=== PATIENT | male | born 1995 | race Caucasian/White ===

== ENCOUNTER 2017-02-24 07:31 | Emergency (ER) | payer OTHER ==
[2017-02-24] MEDS ORDERED: ONDANSETRON HCL INJ/PF 4 MG/2 ML SDV IM ONE (08:23)
[2017-02-24] MEDS ORDERED: HYDROMORPHONE HCL INJ/PF 2 MG/ML AMPULE IM ONE (08:24)
--- NOTE | 2017-02-24 08:27 | ER Document Report ---
ED Oral Problem - General Chief Complaint: Jaw Pain Stated Complaint: JAW PAIN Mode of Arrival: Ambulatory Information source: Patient TRAVEL OUTSIDE OF THE [place] IN LAST 30 DAYS: No - HPI Patient complains to provider of: Jaw pain Onset: Just prior to arrival Quality of pain: Achy Severity: Moderate Associated symptoms: Drooling, Jaw pain. denies: Chills, Cough, Earache, Fever , Short of breath, Sweaty, Toothache, Tongue swelling, Unable to swallow, White patches in mouth Notes: The patient arrives with complaints of bilateral jaw pain. The patient states that he yawned this morning and his jaw opened and he is now unable to close it. He denies any trauma. He denies any fever. He is difficulty moving his jaw. He complains of pain. He denies any difficulty breathing or swallowing. No chest pain or shortness of breath. No blood thinners. He denies any nausea , vomiting, diarrhea. He denies any other complaints at this time. - Related Data Allergies/Adverse Reactions: No Known Allergies Allergy (Verified 02/24/17 07:47) Past Medical History - Social History Smoking Status: Current Every Day Smoker Family History: Reviewed & Not Pertinent Patient has suicidal ideation: No Patient has homicidal ideation: No Renal/ Medical History: Denies: Hx Peritoneal Dialysis Review of Systems - Review of Systems -: Yes All other systems reviewed and negative Physical Exam - Vital signs Vitals: Temp Pulse Resp BP Pulse Ox 98.2 F 73 16 138/77 H 100 02/24/17 07:46 02/24/17 07:46 02/24/17 07:46 02/24/17 07:46 02/24/17 07:46 Interpretation: Normal - General General appearance: Appears well, Alert - HEENT Head: Normocephalic, Atraumatic Eyes: Normal Ears: Normal External canal: Normal Mucous membranes: Normal Pharynx: Normal Neck: Normal Notes: Patient noted an open jaw with obvious TMJ dislocation. There is no redness, no swelling. - Respiratory Respiratory status: No respiratory distress Breath sounds: Normal - Cardiovascular Rhythm: Regular Heart sounds: Normal auscultation Murmur: No - Extremities General upper extremity: Normal inspection, Nontender, Normal color, Normal ROM , Normal temperature General lower extremity: Normal inspection, Nontender, Normal color, Normal ROM , Normal temperature, Normal weight bearing. No: Miguel's sign - Neurological Neuro grossly intact: Yes Cognition: Normal Orientation: AAOx4 - Psychological Associated symptoms: Normal affect, Normal mood - Skin Skin Temperature: Warm Skin Moisture: Dry Skin Color: Normal Course - Re-evaluation Re-evalutation: 02/24/17 09:36 Removal to use the patient's mandibular location using the syringe method. Patient has full range of motion of the jaw at this time. No fevers. No redness. Patient will be discharged home with prescription for some pain medications. He was instructed to avoid opening his mouth wide for the next several weeks. Follow-up for increased pain, fever, numbness, tingling, weakness, any further concerns. 02/24/17 09:39 The patient is noted to have elevated blood pressure during today's emergency department visit. The patient was informed of this finding. The patient was instructed that this may be related to pre-hypertension and requires further evaluation with a primary care provider. The patient has no hypertensive symptoms at this time. - Vital Signs Vital signs: Temp Pulse Resp BP Pulse Ox 98.2 F 73 16 138/77 H 100 02/24/17 07:46 02/24/17 07:46 02/24/17 07:46 02/24/17 07:46 02/24/17 07:46 Procedures - Joint Reduction/Fracture Care TMJ Consent obtained: Yes Manipulation comment: patient had his TMJ dislocation reduced using the syringe method. Post-reduction x-ray: Joint reduced Notes: 02/24/17 09:44 Joint reduced using a syringe method. The patient down on a 10 mL syringe and rocked his jaw back and forth until he was able to reduce his jaw. Patient has full range of motion of the jaw at this time. There was no trauma therefore no x-rays are needed at this time. Patient is feeling significantly better and ready for discharge. Discharge - Discharge Clinical Impression: Closed dislocation of mandible Qualifiers: Encounter type: initial encounter Qualified Code(s): S03.00XA - Dislocation of jaw, unspecified side, initial encounter Condition: Stable Disposition: HOME, SELF-CARE Instructions: Temporomandibular Joint Injury ([facility]) Additional Instructions: Take medication as prescribed. Follow up if not better in one week, sooner for increased pain, fever, difficulty breathing, swallowing or any further concerns. Your blood pressure was elevated during today's visit. Have this rechecked with your doctor. Prescriptions: Diclofenac Sodium [Voltaren] 75 mg PO BID #20 tablet. Hydrocodone/Acetaminophen [[place] 5-325 mg Tablet] 1 tab PO Q4 PRN #12 tablet PRN Reason: Forms: Elevated Blood Pressure
[2017-02-24] MEDS ORDERED: DIAZEPAM INJ 10 MG/2 ML DISP.SYRIN IV ONE (09:33)
[2017-02-24] MEDS ORDERED: KETOROLAC TROMETHAMINE INJ/PF 30 MG/1 ML SDV IV ONE (09:33)
[2017-02-24 10:12] VITALS: BP 139/74
== END 2017-02-24 10:06 | disposition home or self-care (01) ==
LOC: EDBD → ER 07:31
DX: S03.00XA Dislocation of jaw, unspecified side, initial encounter (principal); X58.XXXA Exposure to other specified factors, initial encounter; Y93.89 Activity, other specified; R68.84 Jaw pain; F17.200 Nicotine dependence, unspecified, uncomplicated
CPT/HCPCS: 99283; 96372; 21480; J1170; J2405

== ENCOUNTER 2017-11-25 00:02 | Emergency (ER) | payer OTHER ==
[2017-11-25] MEDS ORDERED: ONDANSETRON HCL INJ/PF 4 MG/2 ML SDV IV ONE (00:28)
[2017-11-25] MEDS ORDERED: NORMAL SALINE 1000 ML 1,000 ML IV ONE ×2 (00:28→01:15)
[2017-11-25 01:00] LABS: ALANINE AMINOTRANSFERASE 29 U/L (21-72); ALBUMIN 4.8 g/dL (3.5-5.0); ALKALINE PHOSPHATASE 47 U/L (38-126); ANION GAP 14 (5-19); ASPARTATE AMINO TRANSFERASE 20 U/L (17-59); BILIRUBIN,DIRECT 0.2 mg/dL (0.0-0.4); BILIRUBIN,TOTAL 1.4 mg/dL (0.2-1.3); BLOOD UREA NITROGEN 11 mg/dL (7-20); CALCIUM 10.1 mg/dL (8.4-10.2); CARBON DIOXIDE 24 mmol/L (22-30); CHLORIDE 100 mmol/L (98-107); GLUCOSE 104 mg/dL (75-110); LIPASE 127.4 U/L (23-300); POTASSIUM 3.6 mmol/L (3.6-5.0); SODIUM 137.6 mmol/L (137-145); TOTAL PROTEIN 7.4 g/dL (6.3-8.2)
[2017-11-25 01:01] LABS: A TYPE INFLUENZA AG NEGATIVE (NEGATIVE); B INFLUENZA AG NEGATIVE (NEGATIVE)
--- NOTE | 2017-11-25 01:15 | ER Document Report ---
ED General - General Chief Complaint: Nausea/Vomiting Stated Complaint: VOMITING Time Seen by Provider: 11/25/17 00:22 Notes: Patient is a 22-year-old male without past medical history who presents with persistent vomiting and near syncope. Apparently the patient was feeling well all day today but shortly after going to sleep he woke up in the middle the night and began vomiting. Reports that he has had persistent vomiting since that time. at the bedside reports that it looks like he vomited up several liters of fluid. He has not had any diarrhea. Family notes that he has had a cough throughout the day today but otherwise is acting completely normally. He has no history of similar symptoms in the past. There have been 3 sick contacts with confirmed influenza in the house. Patient has not tried any to improve his symptoms. Nothing worsens his symptoms. TRAVEL OUTSIDE OF THE [place] IN LAST 30 DAYS: No - Related Data Allergies/Adverse Reactions: No Known Allergies Allergy (Verified 02/24/17 07:47) Past Medical History - General Information source: Patient, Relative - Social History Smoking Status: Never Smoker Frequency of alcohol use: None Drug Abuse: None Lives with: Spouse/Significant other Family History: Reviewed & Not Pertinent Patient has suicidal ideation: No Patient has homicidal ideation: No Renal/ Medical History: Denies: Hx Peritoneal Dialysis Review of Systems - Review of Systems Notes: Constitutional: Negative for fever. HENT: Negative for sore throat. Eyes: Negative for visual changes. Cardiovascular: Negative for chest pain. Respiratory: Negative for shortness of breath. Positive for cough Gastrointestinal: Negative for abdominal pain, positive for vomiting Genitourinary: Negative for dysuria. Musculoskeletal: Negative for back pain. Skin: Negative for rash. Neurological: Negative for headaches, weakness or numbness. 10 point ROS negative except as marked above and in HPI. Physical Exam - Vital signs Vitals: Temp Pulse Resp BP Pulse Ox 97.7 F 106 H 20 133/80 H 99 11/25/17 00:07 11/25/17 00:07 11/25/17 00:07 11/25/17 00:07 11/25/17 00:07 Interpretation: Normal Notes: PHYSICAL EXAMINATION: GENERAL: Somewhat lethargic but wakes easily. No acute distress HEAD: Atraumatic, normocephalic. EYES: Pupils equal round and reactive to light, extraocular movements intact, sclera anicteric, conjunctiva are normal. ENT: nares patent, oropharynx clear without exudates. Dry mucous membranes. NECK: Normal range of motion, supple without lymphadenopathy LUNGS: Breath sounds clear to auscultation bilaterally and equal. No wheezes rales or rhonchi. HEART: Regular tachycardia without murmurs ABDOMEN: Soft, nontender, normoactive bowel sounds. No guarding, no rebound. No masses appreciated. EXTREMITIES: Normal range of motion, no pitting or edema. No cyanosis. NEUROLOGICAL: No focal neurological deficits. Moves all extremities spontaneously and on command. PSYCH: Somewhat lethargic but wakes easily SKIN: Warm, Dry, normal turgor, no rashes or lesions noted. Course - Re-evaluation Re-evalutation: 11/25/17 01:11 Patient presents with persistent vomiting as well as mild lethargy although is alert and oriented. Abdominal exam is benign without any focal tenderness. He has had a persistent cough today. Family and friends at the bedside note that he was well until waking up from sleep with persistent vomiting. Patient has no history of similar symptoms. Medical suspicion is for likely viral etiology , possibly influenza versus alternative viral etiology. Very low clinical suspicion for any acute intra-abdominal pathology as patient has no focal abdominal tenderness on exam, denies any abdominal pain. Low clinical suspicion for an acute pneumonia as patient's lung exam is normal, no hypoxemia or tachypnea. Will provide IV fluids, antiemetics, and reassess frequently. 11/25/17 01:49 Patient looks markedly improved after receiving IV fluids. He is now much more alert, no longer hyperventilating, has tolerated oral intake without any difficulty. Labs are unremarkable with exception of a mild leukocytosis which is nonspecific and likely secondary to his persistent vomiting prior to arrival. Repeat abdominal exam remains benign. Tachycardia has resolved. At this time will discharge with return precautions and follow-up recommendations. Verbal discharge instructions given a the bedside and opportunity for questions given. Medication warnings reviewed. Patient is in agreement with this plan and has verbalized understanding of return precautions and the need for primary care follow-up in the next 24-72 hours. - Vital Signs Vital signs: Temp Pulse Resp BP Pulse Ox 97.7 F 106 H 20 133/80 H 99 11/25/17 00:07 11/25/17 00:07 11/25/17 00:07 11/25/17 00:07 11/25/17 00:07 - Laboratory Result Diagrams: 11/25/17 00:35 11/25/17 00:35 Laboratory results interpreted by me: 11/25/17 11/25/17 11/25/17 00:35 00:35 00:57 WBC 17.4 H Seg Neutrophils % 88.9 H Lymphocytes % 6.1 L Absolute Neutrophils 15.4 H VBG pH 7.51 H VBG pCO2 29.0 L Total Bilirubin 1.4 H - Diagnostic Test Radiology reviewed: Image reviewed, Reports reviewed Radiology results interpreted by me: 11/25/17 01:50 Chest x-ray: No acute infiltrate Discharge - Discharge Clinical Impression: Hyperventilation, Near syncope Nausea and vomiting Qualifiers: Vomiting type: unspecified Vomiting Intractability: non-intractable Qualified Code(s): R11.2 - Nausea with vomiting, unspecified Condition: Good Disposition: HOME, SELF-CARE Additional Instructions: Your symptoms are likely due to a viral infection either influenza or similar virus. The only treatment at this time is supportive care including drinking plenty of fluids, Tylenol and ibuprofen, as well as nausea medicines which you will be sent home with. Your symptoms will likely last for 7-10 days. Please return to the emergency department immediately if you become confused, have persistent vomiting, pass out, have severe headache, or have any other symptoms that are worrisome to you. Follow-up with your primary care doctor in the next several days.
[2017-11-25 01:22] LABS: ABSOLUTE EOSINOPHILS # (AUTO) 0.1 10^3/uL (0.0-0.6); ABSOLUTE LYMPHOCYTES (AUTO) 1.1 10^3/uL (0.5-4.7); ABSOLUTE MONOCYTES (AUTO) 0.7 10^3/uL (0.1-1.4); ABSOLUTE NEUT (AUTO) 15.4 10^3/uL (1.7-8.2); BASOPHILS % (AUTO) 0.1 % (0-2); EOSINOPHILS % (AUTO) 0.8 % (0-6); HEMATOCRIT 40.6 % (37.9-51.0); HEMOGLOBIN 14.6 g/dL (13.5-17.0); LYMPHOCYTES % (AUTO) 6.1 % (13-45); MEAN CORPUSCULAR HGB CONC 35.9 g/dL (32.0-36.0); MEAN CORPUSCULAR VOLUME 89 fl (80-97); MONOCYTES % (AUTO) 4.1 % (3-13); PLATELET COUNT 298 10^3/uL (150-450); RED BLOOD COUNT 4.55 10^6/uL (4.35-5.55); RED CELL DISTRIBUTION WIDTH 12.6 % (11.5-14.0); SEGMENTED NEUTROPHILS % (AUTO) 88.9 % (42-78); TOTAL CELLS COUNTED % (AUTO) 100 %; WHITE BLOOD COUNT 17.4 10^3/uL (4.0-10.5)
[2017-11-25 01:25] LABS: VENOUS BLOOD HCO3 22.8 mmol/L (20-32); VENOUS BLOOD PH 7.51 (7.30-7.42)
--- NOTE | 2017-11-25 01:43 | RADIOLOGY REPORT (SQ) ---
EXAM DESCRIPTION: CHEST SINGLE VIEW CLINICAL HISTORY: 22 years, Male, cough, vomiting COMPARISON: None. FINDINGS: Normal lung volume, clear parenchyma, normal cardiac silhouette, and intact bony thorax. IMPRESSION: No acute cardiopulmonary findings. 2011 [employer]- All Rights Reserved
[2017-11-25] MEDS ORDERED: ONDANSETRON ODT 4 MG TAB (6 TAB/ER DISP) PO PRN (01:50)
[2017-11-25 02:17] VITALS: BP 110/78
== END 2017-11-25 02:16 | disposition home or self-care (01) ==
LOC: ER 00:02
DX: R55 Syncope and collapse (principal); R06.4 Hyperventilation; R11.2 Nausea with vomiting, unspecified
CPT/HCPCS: 99283; 96361; 96374; 36415; 83690; 85025; 80053; 82803; 87804; 71045; J2405; J7030

== ENCOUNTER 2018-01-23 21:09 | Emergency (ER) | payer OTHER ==
[2018-01-23 21:22] VITALS: BP 136/69
--- NOTE | 2018-01-23 21:24 | ER Document Report ---
HPI - HPI Patient complains to provider of: hit fingers on pole Onset: Just prior to arrival Pain Level: 3 Context: 22 yo male was sinking pole in ground and accidentally hit dorsal 3,4,5 fingertips on the pole. %th finger nail popped out of the nailbed. Tetanus not current. Associated Symptoms: None Exacerbated by: Denies Relieved by: Denies - ROS ROS below otherwise negative: Yes Systems Reviewed and Negative: Yes All other systems reviewed and negative Past Medical History - General Information source: Patient - Social History Smoking Status: Current Every Day Smoker Frequency of alcohol use: None Drug Abuse: None Lives with: Family Family History: Reviewed & Not Pertinent - Medical History Medical History: Negative Renal/ Medical History: Denies: Hx Peritoneal Dialysis Surgical Hx: Negative Vertical Provider Document - CONSTITUTIONAL Agree With Documented VS: Yes Exam Limitations: No Limitations General Appearance: No Apparent Distress - INFECTION CONTROL TRAVEL OUTSIDE OF THE [place] IN LAST 30 DAYS: No - RESPIRATORY O2 Sat by Pulse Oximetry: 98 - MUSCULOSKELETAL/EXTREMETIES Musculoskeletal/Extremeties: MAEW, FROM, Tender - abrasions to 3/4th fingers at the DIP, FROM. 5th nail overlyingnalbed, FROM, non tender. n/v intact. - NEURO Level of Consciousness: Awake, Alert Motor/Sensory: No Motor Deficit, No Sensory Deficit - DERM Integumentary: Warm, Dry Course - Vital Signs Vital signs: Temp Pulse Resp BP Pulse Ox 98.8 F 64 20 136/69 H 98 01/23/18 21:20 01/23/18 21:20 01/23/18 21:20 01/23/18 21:20 01/23/18 21:20 Discharge - Discharge Clinical Impression: 3,4,5 finger abrasions, 5th rt nail overlying nailbed Condition: Good Disposition: HOME, SELF-CARE Instructions: Abrasions ([facility]), Avulsion Injury ([facility]) Additional Instructions: soak fingers in warm soapy water daily bacitracin, non stick dressing the new nail will grow out, the old nail with advance upward, keep it clipped to er any signs of infection Forms: Return to Work
[2018-01-23] MEDS ORDERED: DIPH/PERTUSS(ACELL)/TETANUS VAC/PF 0.5 ML SYR (>=10YO) IM ONE (21:28)
== END 2018-01-23 22:09 | disposition home or self-care (01) ==
LOC: ER 21:09
DX: S60.418A Abrasion of other finger, initial encounter (principal); W22.09XA Striking against other stationary object, initial encounter; F17.200 Nicotine dependence, unspecified, uncomplicated; Z23 Encounter for immunization
CPT/HCPCS: 90471; 90715; 99283